=== PATIENT | male | born 1965 | race Caucasian/White ===

== ENCOUNTER 2021-12-28 12:03 | Outpatient (CLI) | payer MEDICAID, SELFPAY ==
--- NOTE | 2021-12-28 12:14 | XRR_ITS ---
PROCEDURE INFORMATION: Exam: XR Left Hip Exam date and time: 12/28/2021 12:28 PM Age: 56 years old Clinical indication: Hip pain; Left hip; Additional info: Chronic left hip pain TECHNIQUE: Imaging protocol: Radiologic exam of the Left hip. Views: 2 or 3 views hip with pelvis when performed. COMPARISON: No relevant prior studies available. FINDINGS: Bones/joints: No acute fracture or dislocation. 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 There is flattening and lucency of the superior femoral head with remodeling of the acetabulum and medial joint space narrowing. Osteophyte formation present at the acetabulum. Soft tissues: No acute soft tissue abnormality. 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 Degenerative changes involving the left hip joint.
== END 2021-12-28 12:04 | disposition home or self-care (01) ==
LOC: RAD 12:07
PROVIDERS: PCP Family Medicine; Visit Provider Family Medicine
DX: M16.12 Unilateral primary osteoarthritis, left hip (principal); G89.29 Other chronic pain; M25.552 Pain in left hip
CPT/HCPCS: 73502; 80053; 80061; 83036; 83721; 84443; 85025

== ENCOUNTER 2022-04-05 20:00 | Outpatient (CLI) | payer MEDICAID, SELFPAY | END 2022-04-05 20:01 | disposition home or self-care (01) | LOC: SLEEP 04-06 07:37 | PROVIDERS: PCP Family Medicine; Visit Provider Family Medicine | DX: G47.10 Hypersomnia, unspecified (principal); R06.83 Snoring; R53.83 Other fatigue; G47.33 Obstructive sleep apnea (adult) (pediatric) | CPT/HCPCS: 95811 ==

== ENCOUNTER 2022-04-11 14:33 | Outpatient (CLI) | payer MEDICAID, SELFPAY ==
[2022-04-11 16:23] LABS: Estmated Average Glucose 246; Hemoglobin A1C 10.2 % (4.0-6.0)
[2022-04-11 16:25] LABS: Alanine Aminotransferase 38 U/L (0-41); Albumin Level 4.1 g/dL (3.5-5.2); Alkaline Phosphatase 92 U/L (40-130); Anion Gap 13.6 (5-19); Aspartate Amino Transferase 25 U/L (0-40); Blood Urea Nitrogen 13 mg/dL (6-20); Calcium 9.1 mg/dL (8.5-10.5); Carbon Dioxide 27 mmol/L (22-29); Chloride 99 mmol/L (98-107); Free T4 Free Thyroxine 1.05 ng/dL (0.82-1.77); Globulin 3.5 g/dL (1.3-4.6); Glomerular Filtration Rate 99.3 mL/min (90-130); Glucose 120 mg/dL (65-115); Osmolality Calculated 281 mOsm/kg (285-295); Potassium 4.6 mmol/L (3.5-5.1); Sodium 135 mmol/L (136-145); Thyroid Stimulating Hormone 3.09 uIU/mL (0.27-4.20); Total Bilirubin 0.3 mg/dL (0.15-1.2); Total Protein 7.6 g/dL (6.6-8.7)
== END 2022-04-11 14:34 | disposition home or self-care (01) ==
LOC: LAB 14:41
PROVIDERS: PCP Family Medicine; Visit Provider Family Medicine
DX: E11.9 Type 2 diabetes mellitus without complications (principal); E03.9 Hypothyroidism, unspecified
CPT/HCPCS: 36415; 80053; 83036; 84439; 84443

== ENCOUNTER → 2022-08-02 14:42 | Outpatient (BNVA) | payer MEDICAID, SELFPAY | PROVIDERS: PCP Family Medicine; Visit Provider Family Medicine | DX: R79.89 Other specified abnormal findings of blood chemistry (principal); R53.83 Other fatigue; E11.9 Type 2 diabetes mellitus without complications; E03.9 Hypothyroidism, unspecified | CPT/HCPCS: 80053; 83036; 84403; 84439; 84443 ==

== ENCOUNTER → 2022-10-26 09:35 | Outpatient (BNVA) | payer MEDICAID, SELFPAY | PROVIDERS: PCP Family Medicine; Visit Provider Family Medicine | DX: R79.89 Other specified abnormal findings of blood chemistry (principal) | CPT/HCPCS: 84403; 85025 ==

== ENCOUNTER → 2022-11-11 10:31 | Outpatient (BNVA) | payer MEDICAID, SELFPAY | PROVIDERS: PCP Family Medicine; Visit Provider Family Medicine | DX: R35.1 Nocturia (principal); E78.5 Hyperlipidemia, unspecified; E11.9 Type 2 diabetes mellitus without complications; Z13.6 Encounter for screening for cardiovascular disorders | CPT/HCPCS: 80053; 80061; 83036; 84153; 84403 ==

== ENCOUNTER → 2022-12-26 13:47 | Outpatient (BNVA) | payer MEDICAID, SELFPAY | PROVIDERS: PCP Family Medicine; Visit Provider Dermatology | DX: L30.8 Other specified dermatitis (principal); L94.0 Localized scleroderma [morphea]; I87.2 Venous insufficiency (chronic) (peripheral); L57.0 Actinic keratosis; L81.4 Other melanin hyperpigmentation; L21.8 Other seborrheic dermatitis; L82.1 Other seborrheic keratosis | CPT/HCPCS: 17000; 99214 ==

== ENCOUNTER → 2023-02-20 11:40 | Outpatient (BNVA) | payer MEDICAID, SELFPAY | PROVIDERS: PCP Family Medicine; Visit Provider Family Medicine | DX: E11.9 Type 2 diabetes mellitus without complications (principal); E03.9 Hypothyroidism, unspecified; Z13.6 Encounter for screening for cardiovascular disorders | CPT/HCPCS: 80053; 83036; 84443 ==

== ENCOUNTER → 2023-05-22 09:21 | Outpatient (BNVA) | payer MEDICAID, SELFPAY | PROVIDERS: PCP Family Medicine; Visit Provider Nurse Practitioner Family | DX: E11.9 Type 2 diabetes mellitus without complications (principal); R79.89 Other specified abnormal findings of blood chemistry; R53.83 Other fatigue | CPT/HCPCS: 83036; 84403; 85025 ==

== ENCOUNTER → 2023-10-11 11:00 | Outpatient (BNVA) | payer MEDICAID, SELFPAY | PROVIDERS: PCP Family Medicine Adult Medicine; Visit Provider Family Medicine Adult Medicine | DX: I10 Essential (primary) hypertension (principal); E11.9 Type 2 diabetes mellitus without complications | CPT/HCPCS: 80053; 83036 ==

== ENCOUNTER → 2023-12-27 11:34 | Outpatient (BNVA) | payer MEDICAID, SELFPAY | PROVIDERS: PCP Nurse Practitioner Family; Visit Provider Nurse Practitioner Family | DX: D48.5 Neoplasm of uncertain behavior of skin (principal); L57.0 Actinic keratosis; L94.0 Localized scleroderma [morphea]; L21.8 Other seborrheic dermatitis; I87.2 Venous insufficiency (chronic) (peripheral); L30.8 Other specified dermatitis; L81.4 Other melanin hyperpigmentation; L82.1 Other seborrheic keratosis; L72.0 Epidermal cyst | CPT/HCPCS: 11102; 17000; 99214 ==

== ENCOUNTER → 2024-02-06 10:15 | Outpatient (BNVA) | payer MEDICAID, SELFPAY | PROVIDERS: PCP Family Medicine; Visit Provider Family Medicine | DX: J43.1 Panlobular emphysema (principal); E11.9 Type 2 diabetes mellitus without complications; I10 Essential (primary) hypertension; M25.552 Pain in left hip; G89.29 Other chronic pain; F17.219 Nicotine dependence, cigarettes, with unspecified nicotine-induced disorders; E29.1 Testicular hypofunction; E03.9 Hypothyroidism, unspecified; R79.89 Other specified abnormal findings of blood chemistry; E78.5 Hyperlipidemia, unspecified; E55.9 Vitamin D deficiency, unspecified; Z12.5 Encounter for screening for malignant neoplasm of prostate; Z76.89 Persons encountering health services in other specified circumstances | CPT/HCPCS: 80053; 80061; 82306; 82607; 83036; 84403; 84439; 84443; 85025; G0103 ==

== ENCOUNTER → 2024-10-14 16:05 | Outpatient (BNVA) | payer MEDICAID, SELFPAY | PROVIDERS: PCP Family Medicine; Visit Provider Family Medicine | DX: Z12.5 Encounter for screening for malignant neoplasm of prostate (principal); E55.9 Vitamin D deficiency, unspecified; I10 Essential (primary) hypertension; E78.5 Hyperlipidemia, unspecified; E11.9 Type 2 diabetes mellitus without complications; E03.9 Hypothyroidism, unspecified; R79.89 Other specified abnormal findings of blood chemistry; E29.1 Testicular hypofunction | CPT/HCPCS: 80053; 80061; 82306; 82607; 83036; 84403; 84439; 84443; 85025; G0103 ==

== ENCOUNTER 2024-10-18 13:48 | Outpatient (CLI) | payer MEDICAID, SELFPAY ==
--- NOTE | 2024-10-18 14:15 | CT_ITS ---
WS: [id number] LDCT LUNG CANCER SCREENING TECHNIQUE: Noncontrast CT of the chest with coronal and sagittal reformatted images. CLINICAL INFORMATION: F17.219 - Nicotine dependence, cigarettes, with unspecifi... COMPARISON: None. DLP: 112.07 mGy.cm DIvol: Mean CTDIvol: 2.50 (mGy) All CT scans at [facility] use at least one of these dose optimization techniques: automated exposure control; mA and/or kV adjustment per patient size (includes targeted exams where dose is matched to clinical indication); or iterative reconstruction. FINDINGS: Subsegmental atelectasis in the lingula. No suspicious pulmonary parenchymal abnormalities. Lungs are well aerated. No mediastinal or hilar lymphadenopathy. No axillary lymphadenopathy. Mild thoracic curve. Mild thoracic kyphosis. Aortic calcification. Normal caliber thoracic aorta. No mediastinal or hilar lymphadenopathy. Aortic calcification. Coronary calcification. CT/CT lung screening [id number] IMPRESSION: LUNG-RADS: 1-Negative FOLLOW UP: 12 Month: Continue annual screening with LDCT
== END 2024-10-18 13:49 | disposition home or self-care (01) ==
LOC: RAD 13:49
PROVIDERS: PCP Family Medicine; Visit Provider Family Medicine
DX: Z12.2 Encounter for screening for malignant neoplasm of respiratory organs (principal); F17.219 Nicotine dependence, cigarettes, with unspecified nicotine-induced disorders; J98.11 Atelectasis; I70.0 Atherosclerosis of aorta; M40.204 Unspecified kyphosis, thoracic region; I25.10 Atherosclerotic heart disease of native coronary artery without angina pectoris
CPT/HCPCS: 71271